=== PATIENT | female | born 1965 | race Caucasian/White ===

== ENCOUNTER 2018-09-23 11:43 | Day surgery (SDC) | payer OTHER ==
[2018-09-23] MEDS ORDERED: PROPOFOL 20 ML (14:20)
[2018-09-23] MEDS ORDERED: FENTAnyl 50 MCG/ML VIAL (14:20)
[2018-09-23] MEDS ORDERED: ONDANSETRON 4 MG INJ IV (14:30)
== END 2018-09-23 15:53 | disposition home or self-care (01) ==
LOC: GIL 11:43
DX: Z12.11 Encounter for screening for malignant neoplasm of colon (principal); K64.8 Other hemorrhoids; E11.9 Type 2 diabetes mellitus without complications; Z79.84 Long term (current) use of oral hypoglycemic drugs
CPT/HCPCS: 43239; 82962; 88305; 88312